=== PATIENT | male | born 1990 ===

== ENCOUNTER 2024-04-12 16:58 | Emergency (ER) | payer OTHER | END 2024-04-12 17:30 | LOC: JP.ED 16:58 | DX: F15.10 Other stimulant abuse, uncomplicated (principal); S60.511A Abrasion of right hand, initial encounter; S60.512A Abrasion of left hand, initial encounter; X58.XXXA Exposure to other specified factors, initial encounter; Y93.02 Activity, running | CPT/HCPCS: 99283 ==